=== PATIENT | female | born 1935 | race Caucasian/White ===

== ENCOUNTER 2020-02-24 11:49 | Emergency (ER) | payer OTHER | END 2020-02-24 12:31 | disposition home or self-care (01) | LOC: JVIRT 11:49 | DX: Z03.818 Encounter for observation for suspected exposure to other biological agents ruled out (principal) | CPT/HCPCS: C9803; G2012-GT; Q3014-GT; U0003 ==

== ENCOUNTER 2021-12-07 16:15 | Emergency (ER) | payer OTHER ==
[2021-12-07 16:29] VITALS: PULSE 80; RESP 18; TEMP 98.1; BMI 26.5
[2021-12-07 17:36] VITALS: BP 176/61
== END 2021-12-07 17:36 | disposition home or self-care (01) ==
LOC: FER 16:15
DX: I10 Essential (primary) hypertension (principal)
CPT/HCPCS: 82962; 99283-25

== ENCOUNTER 2022-04-21 18:00 | Emergency (ER) | payer OTHER ==
[2022-04-21 18:20] VITALS: BP 165/79; PULSE 66; RESP 18; TEMP 98.3; BMI 26.2
[2022-04-21] MEDS ORDERED: IBUPROFEN 400 MG TABLET (FP) PO ONE ×2 (18:36→18:45)
== END 2022-04-21 19:55 | disposition home or self-care (01) ==
LOC: FER 18:00
DX: S40.021A Contusion of right upper arm, initial encounter (principal); W01.0XXA Fall on same level from slipping, tripping and stumbling without subsequent striking against object, initial encounter
CPT/HCPCS: 73030-TC-RT-FY; 73060-TC-RT-FY; 99283-25